=== PATIENT | male | born 1975 | race Caucasian/White ===

== ENCOUNTER 2023-01-04 00:54 | Day surgery (SDC) | payer OTHER, SELFPAY ==
[2022-12-24 14:58] VITALS: BMI 24.5
--- NOTE | 2023-01-01 17:23 | WPDANESEPP ---
Anes - Eval Pre Procedure Procedure: Operation Date: 01/04/23 08:00 Proposed Procedures p Screening Colonoscopy - Miles Obrien MD Date/Time: 01/01/23 17:23 Pre Op Diagnosis: neoplasm screening Patient Data Age: 47 Gender: M Height: 1.88 m Weight: 86.5 kg Allergies Allergy/AdvReac Type Severity Reaction Status Date / Time javid Allergy Severe Blister Verified 12/24/22 14:58 mold Allergy Severe Congested Verified 12/24/22 14:58 poison paulette extract Allergy Severe Swelling Verified 12/24/22 14:59 cats Allergy Severe Congested Uncoded 12/24/22 14:58 Home Medications Medication Instructions Recorded Confirmed Type cholecalciferol (vitamin D3) 10 10 mcg PO 3XW 01/27/22 12/24/22 History mcg (400 unit) tablet multivitamin 1 tablet PO 3XW 01/27/22 12/24/22 History naproxen sodium 220 mg capsule 220 mg PO BID PRN Pain 01/27/22 12/24/22 History (Aleve) sodium,potassium,mag sulfates 17.5 See Rx Instructions PO .COMPLEX 10/08/22 Rx gram-3.13 gram-1.6 gram oral soln #354 mL (Suprep Bowel Prep Kit) Patient hx anesthesia problems: none Family hx anesthesia problems: none Results Review: All pre-operative results and documents have been reviewed as part of the pre-operative evaluation. [facility] Family History Family History (Updated 01/27/22 @ 09:01 by Georgie Zurita MA) Mother Depression Grandparent Hypertension Malignant neoplasm of prostate Social History Social History (Updated 01/27/22 @ 09:02 by Georgie Zurita MA) Smoking status: Never smoker Second hand tobacco smoke exposure: No Alcohol intake: current Substance use: never Substance use type: does not use Living arrangements: with family Occupation/Education: occupation Gender identity (if verbalized by the patient): Male Spiritual care concerns: No Agree to blood products: Yes Exam Day of Procedure 01/01/23 17:23
[2023-01-04 06:43] VITALS: BP 113/73; PULSE 65; RESP 18; TEMP 36.4; O2SAT 100
[2023-01-04] MEDS: LACTATED RINGERS 1,000 ML 150 ML IV CONT (06:49)
--- NOTE | 2023-01-04 07:49 | P.PNAN_ITS ---
Anes - Eval Final PreProcedure Day of Procedure 01/04/23 07:49 Patient weight: normal Heart: regular rate and rhythm Lungs: clear to auscultation Airway: Mallampati scale class II Neurological: alert and oriented Last oral intake: >/= 8 hours ASA classification: II Emergent: no Anesthetic plan: proceed Anesthesia type and monitoring: general GIVS and standard monitoring Results Review: All pre-operative results and documents have been reviewed as part of the pre- operative evaluation. Informed Consent: The patient's anesthetic plan and its attendant risks and benefits were discussed with the patient/family/POA. Questions were solicited and answers provided to the satisfaction of the patient/family/POA.
--- NOTE | 2023-01-04 08:00 | P.HP_ITS ---
History of Present Illness History of Present Illness Consent: Risks, benefits, and alternatives have been discussed and questions answered. Patient agrees to proceed with procedure. Chief complaint: neoplasm screening Narrative: Garry Mcgee is a 47 year old male Presents for screening colonoscopy. Patient's current weight appetite and bowel movements are normal. Patient denies abdominal pain. He has had no bleeding. Family history is significant for grandfather who had a colon polyp. Patient presents today for neoplasia screening. Review of Systems Review of Systems: Review of systems noncontributory. [facility] Family History Family History (Updated 01/27/22 @ 09:01 by Georgie Zurita MA) Mother Depression Grandparent Hypertension Malignant neoplasm of prostate Social History Social History (Updated 01/27/22 @ 09:02 by Georgie Zurita MA) Smoking status: Never smoker Second hand tobacco smoke exposure: No Alcohol intake: current Substance use: never Substance use type: does not use Living arrangements: with family Occupation/Education: occupation Gender identity (if verbalized by the patient): Male Spiritual care concerns: No Agree to blood products: Yes Meds Home Medications and Allergies Home Medications Medication Instructions Recorded Confirmed Type cholecalciferol (vitamin D3) 10 10 mcg PO 3XW 01/27/22 01/04/23 History mcg (400 unit) tablet multivitamin 1 tablet PO 3XW 01/27/22 01/04/23 History naproxen sodium 220 mg capsule 220 mg PO BID PRN Pain 01/27/22 01/04/23 History (Aleve) Allergies Allergy/AdvReac Type Severity Reaction Status Date / Time cat dander Allergy Severe Congested Verified 01/04/23 06:42 javid Allergy Severe Blister Verified 01/04/23 06:42 mold Allergy Severe Congested Verified 01/04/23 06:42 poison paulette extract Allergy Severe Swelling Verified 01/04/23 06:42 Vital Signs Vital Signs - 24 hr 01/04/23 06:43 Temperature 97.5 F L Pulse Rate 65 Respiratory Rate 18 Blood Pressure 113/73 Pulse Oximetry 100 Oxygen Delivery Room Air Exam Narrative: Physical exam reveals patient to be alert. Vital signs stable. HEENT exam is unremarkable. Patient is anicteric. Lungs are clear to auscultation and percussion. Heart is without murmur or extra sounds. Abdomen bowel sounds present soft nontender with no organomegaly. Digital external rectal exam is normal. Assessment and Plan Assessment and plan (1) Encounter for screening colonoscopy: Code(s): Z12.11 - Encounter for screening for malignant neoplasm of colon Status: Acute Assessment and Plan: Patient presents today for screening colonoscopy. Further recommendations will be given after endoscopy.
[2023-01-04] MEDS: SIMETHICONE ORAL SUSPENSION 20 MG/0.3 ML 30 ML BOTTLE 0.6 ML IRRIGATION (08:13)
[2023-01-04 08:24] VITALS: BP 92/59; PULSE 57; RESP 19; O2SAT 95
[2023-01-04 08:34] VITALS: BP 94/68; PULSE 60; RESP 20; O2SAT 98
[2023-01-04 08:44] VITALS: BP 101/67; PULSE 54; RESP 20; O2SAT 98
== END 2023-01-04 08:51 | disposition home or self-care (01) ==
PROVIDERS: PCP Family Medicine Adolescent Medicine; Visit Provider Internal Medicine Gastroenterology
PROC: 0DJD8ZZ Inspection of Lower Intestinal Tract, Via Natural or Artificial Opening Endoscopic (ICD-10-PCS; CPT 45378; principal; 2023-01-04 08:00)
DX: Z12.11 Encounter for screening for malignant neoplasm of colon (principal)
CPT/HCPCS: 45378; J2704; J7120

== ENCOUNTER 2023-12-10 05:09 | Emergency (ER) | payer OTHER, SELFPAY ==
--- NOTE | ~2023-12-10 | CT_ITS ---
CT of the Abdomen and Pelvis: Indication: Abdominal pain Technique: 2.5 mm axial scans were obtained through the abdomen and pelvis following intravenous adm inistration of 100 cc of Omnipaque 350. Dose reduction technique was used on this scan by utilizing a utomated exposure control and iterative reconstruction technique. The dose-length product (DLP) was 4 92.19 mGy-cm. Findings: Scans through the lung bases are unremarkable. The liver, spleen, pancreas, gallbladder, adrenals and kidneys are within normal limits. No evidence of aortic aneurysm. No lymphadenopathy. No bowel obstruction or bowel wall thickening. There is no evidence to suggest acute appendicitis. Images through the pelvis were performed. Urinary bladder unremarkable. No pelvic mass seen. No ascit es. Impression: No significant abnormalities seen. Reviewed, dictated and finalized at location . Impression: No significant abnormalities seen.
--- NOTE | ~2023-12-10 | US_ITS ---
EXAMINATION: US scrotum doppler DATE: 12/10/2023 09:16 INDICATION: Right groin pain. TECHNIQUE: Grayscale and Doppler ultrasound images of the testes were obtained. COMPARISON: None. FINDINGS: The right testis measures 4.5 x 2.4 x 3.6 cm. The left testis measures 5.3 x 2.4 x 4.6 cm. There is normal vascular flow to both testes. The right epididymis demonstrates a 5 mm cyst. The left epididymis demonstrates a 2.3 x 2.1 x 1.3 cm cyst with low-level echoes, consistent with a hemorrhag ic cyst. There is normal vascular flow in the epididymides. There is a small right hydrocele. There i s no varicocele. IMPRESSION: 1. Small right hydrocele. Reviewed, dictated and finalized at location A. IMPRESSION: 1. Small right hydrocele.
[2023-12-10 05:19] VITALS: BP 128/86; PULSE 98; RESP 15; TEMP 36.6; O2SAT 100
[2023-12-10 05:29] LABS: Basophils Percent Auto 0.4 % (0.2-1.2); Eosinophils Absolute Auto 0.1 K/mm3 (0-0.3); Eosinophils Percent Auto 1.3 % (0-4.4); Hematocrit 46.4 % (42.0-52.0); Hemoglobin 15.3 g/dL (14.0-18.0); Immature Granulocyte Absolute 0.02 K/mm3 (0.00-0.031); Immature Granulocyte Percent A 0.3 % (0-0.5); Lymphocytes Percent Auto 29.5 % (18.3-44.2); Mean Corpuscular Hemoglobin 30.2 pg (26-34); Mean Corpuscular Volume 91.5 fl (80-100); Mean Platelet Volume 11.8 fl (7.4-10.4); Monocytes Absolute Auto 0.7 K/mm3 (0.1-0.6); Monocytes Percent Auto 9.5 % (2.6-8.5); Neutrophils Absolute Auto 4.2 K/mm3 (1.3-6.7); Platelet Count Result 144 k/mm3 (150-375); Red Blood Count 5.07 M/mm3 (4.6-6.20); Red Cell Distribution Width 12.8 % (11.5-14.5); White Blood Count 7.1 K/mm3 (4.5-10.0)
[2023-12-10 05:40] LABS: Alanine Aminotransferase 20 U/L (6-50); Albumin Level 4.6 g/dL (3.5-5.1); Alkaline Phosphatase 95 U/L (38-126); Anion Gap 6 mmol/L (4-12); Aspartate Amino Transferase 24 U/L (17-59); Bilirubin,Total 0.8 mg/dL (0.2-1.3); Blood Urea Nitrogen 22 mg/dL (9-20); Calcium 9.3 mg/dL (8.4-10.2); Carbon Dioxide 29 mmol/L (22-30); Chloride 105 mmol/L (98-107); Estimated CRCL calculation 114 ml/min; Estimated Glomerular Filt Rate > 60; Glucose 90 mg/dL (65-110); Lipase 126 U/L (23-300); Sodium 140 mmol/L (137-145)
[2023-12-10 06:16] LABS: Appearance Urine Clear (Clear); Bilirubin Urine Negative (Negative); Blood Urine Negative (Negative); Color Urine Yellow (Yellow); Glucose Urine UA Negative (Negative); Ketones Urine Negative (Negative); Leukocyte Esterase Ur Negative LEU/UL (Negative); Nitrate Urine Negative (Negative); Protein Urine Negative (Negative); Specific Grav Ur 1.012 (1.001-1.035); Urobilinogen Urine 0.2 mg/dL (<2.0)
[2023-12-10 06:20] LABS: Add Urine Microscopic? NO
--- NOTE | 2023-12-10 07:32 | ED.ABDPAIN ---
HPI - Abdominal Pain General Chief Complaint: Abdominal Pain Stated Complaint: abd pain Time Seen by Provider: 12/10/23 06:53 History of Present Illness HPI narrative: 48-year-old male presenting emergency department for evaluation for right lower quadrant pain that started yesterday. Patient states the discomfort initially started as bloating and then developed right lower quadrant pain. Patient reports that the pain was right lower quadrant intense for about 20 hours then this morning at approximately 4:00 a.m. the pain resolved. Patient reports while he was in the emergency department when he sneezed he had acute worsening of muscular pain in the groin which was a different type of pain that he was having prior to 4:00 a.m. Patient states the pain does radiate to his groin. Pain is worsened with sneezing and movement. Patient denies any prior history appendicitis, cholecystitis or ureteral calculi. Related Data Home Medications Medication Instructions Recorded Confirmed cholecalciferol (vitamin D3) 10 10 mcg PO 3XW 01/27/22 07/06/23 mcg (400 unit) tablet multivitamin 1 tablet PO 3XW 01/27/22 07/06/23 naproxen sodium 220 mg capsule 220 mg PO BID PRN Pain 01/27/22 07/06/23 (Aleve) Allergies Allergy/AdvReac Type Severity Reaction Status Date / Time cat dander Allergy Severe Congested Verified 12/10/23 05:24 javid Allergy Severe Blister Verified 12/10/23 05:24 mold Allergy Severe Congested Verified 12/10/23 05:24 poison paulette extract Allergy Severe Swelling Verified 12/10/23 05:24 Review of Systems Review of Systems: All systems reviewed & are unremarkable except as noted in HPI and below PMFSH Family History Family History (Updated 01/27/22 @ 09:01 by Georgie Zurita MA) Mother Depression Grandparent Hypertension Malignant neoplasm of prostate Social History Social History (Updated 07/06/23 @ 13:41 by Brenda Ricardo CMA) Smoking status: Never smoker Second hand tobacco smoke exposure: No Alcohol intake: current Substance use: never Substance use type: does not use Do You Feel Safe in your Home?: Yes Lack of Transportation: No Lack of Food: Never True Current Housing: I Have Housing Concerned About Future Housing: No Difficulty Paying Gas/Electric Bills: No Difficulty Paying for Meds: No Currently Unemployed: No Education: Master's Degree or Higher Difficulty w/ Childcare or Family Care: No Living arrangements: with family Occupation/Education: occupation Gender identity (if verbalized by the patient): Male Spiritual care concerns: No Agree to blood products: Yes Exam Narrative: APPEARANCE: Well appearing, no pain, no distress, well-nourished. HEAD: normocephalic, atraumatic. EYES: PERRLA/EOMI, conjunctivae clear. NOSE: Normal no drainage EARS:TMS clear with good light reflex. THROAT: Pharynx clear, no exudate. NECK: Supple. No adenopathy, no masses. RESPIRATORY: Airway patent, respirations nonlabored. Clear to auscultation bilaterally, no rales, rhonchi, wheezing. CARDIOVASCULAR: Regular rate and rhythm without murmurs rubs or gallops. ABDOMINAL: No flank tenderness to palpation, mild right lower quadrant tenderness to palpation MUSCULOSKELETAL: Moves all extremities. Strength/ROM intact, No edema, No calf tenderness. NEURO: Alert. Cranial nerves II through XII intact. Grossly intact Course Course Emergency Course: Patient and family are updated on the results of the workup and patient was discharged home Vital Signs Vital signs: Vital Signs Temperature 97.9 F 12/10/23 05:19 Pulse Rate 98 12/10/23 05:19 Respiratory Rate 15 12/10/23 05:19 Blood Pressure 128/86 12/10/23 05:19 Pulse Oximetry 100 12/10/23 05:19 Oxygen Delivery Room Air 12/10/23 05:19 Temperature 97.9 F 12/10/23 05:19 Pulse Rate 64 12/10/23 08:42 Respiratory Rate 17 12/10/23 08:42 Blood Pressure 115/71 12/10/23 08:42 Pulse Oximetry 100
[2023-12-10 08:42] VITALS: BP 115/71; PULSE 64; RESP 17; O2SAT 100
== END 2023-12-10 09:57 | disposition home or self-care (01) ==
PROVIDERS: Emergency Medicine; Emergency Provider Emergency Medicine; PCP Family Medicine Adolescent Medicine
DX: N43.3 Hydrocele, unspecified (principal); R10.31 Right lower quadrant pain
CPT/HCPCS: 36415; 74177; 76870; 80053; 81003; 83690; 85025; 93976; 99284; Q9967